=== PATIENT | male | born 1980 ===

== ENCOUNTER 2017-04-03 15:51 | Emergency (ER) | payer OTHER ==
--- NOTE | 2017-04-03 16:21 | UC ---
General HPI - HPI Summary HPI Summary: complaint of tick embedded in his left hip found it this morning and removed it this morning has small red rash around the bite site - History of Current Complaint Chief Complaint: UCSkin Stated Complaint: TICK BITE Time Seen by Provider: 04/03/17 16:14 Hx Obtained From: Patient - Allergy/Home Medications Allergies/Adverse Reactions: Allergies Allergy/AdvReac Type Severity Reaction Status Date / Time No Known Allergies Allergy Verified 04/03/17 16:10 PMH/Surg Hx/FS Hx/Imm Hx Previously Healthy: Yes - Surgical History Surgical History: None Surgery Procedure, Year, and Place: eye surgery - Family History Known Family History: Positive: Hypertension - father Negative: Cardiac Disease, Diabetes - Social History Occupation: Employed Full-time Lives: With Family Alcohol Use: Occasionally Substance Use Type: None Smoking Status (MU): Former Smoker Review of Systems Constitutional: Negative Skin: Rash Eyes: Negative ENT: Negative Respiratory: Negative Cardiovascular: Negative Gastrointestinal: Negative Genitourinary: Negative Motor: Negative Neurovascular: Negative Musculoskeletal: Negative Neurological: Negative Psychological: Negative All Other Systems Reviewed And Are Negative: Yes Physical Exam Triage Information Reviewed: Yes Appearance: No Pain Distress, Well-Nourished, Obese Vital Signs: Initial Vital Signs Temp 98.9 F 04/03/17 16:00 Pulse 103 04/03/17 16:00 Resp 18 04/03/17 16:00 BP 158/86 04/03/17 16:00 Pulse Ox 100 04/03/17 16:00 Vital Signs Reviewed: Yes Eyes: Positive: Conjunctiva Clear ENT: Positive: Pharynx normal, TMs normal Neck: Positive: No Lymphadenopathy Respiratory: Positive: Lungs clear, Normal breath sounds, No respiratory distress, No accessory muscle use Cardiovascular: Positive: RRR, No Murmur, Pulses Normal Abdomen Description: Positive: Nontender, Soft Bowel Sounds: Positive: Present Musculoskeletal: Positive: No Edema Neurological: Positive: Alert Psychological Exam: Normal Skin Exam: Other - right hip - tick bite site with 1x1.5 cm area of erythema surrounding site Course/Dx - Course Course Of Treatment: exam completed. will give prophylactic dosage of doxycylcine followup with PCP - Differential Dx - Multi-Symptom Provider Diagnoses: tick bite. elevated blood pressure Discharge - Discharge Plan Condition: Stable Disposition: HOME Prescriptions: DOXYcycline CAP(*) [DOXYcycline 100MG CAP(*)] 100 mg PO DAILY #2 cap Patient Education Materials: Tick Bite (ED) Referrals: Juan Coulter MD [Primary Care Provider] - Additional Instructions: Please start antibiotic as directed Increase fluids and rest Please review your discharge instructions. If your symptoms do not improve please call your primary care provider or return to urgent care. Your blood pressure is elevated. Please contact your primary care provider within 1 -4 weeks for further evaluation.
== END 2017-04-03 16:44 | disposition home or self-care (01) ==
LOC: UCEAST 15:51
DX: S70.262A Insect bite (nonvenomous), left hip, initial encounter (principal); W57.XXXA Bitten or stung by nonvenomous insect and other nonvenomous arthropods, initial encounter; Y93.9 Activity, unspecified; Y92.9 Unspecified place or not applicable; Y99.9 Unspecified external cause status; Z87.891 Personal history of nicotine dependence
CPT/HCPCS: 99202; G0463

== ENCOUNTER 2017-09-16 07:13 | Emergency (ER) | payer OTHER ==
--- NOTE | 2017-09-16 08:12 | UC ---
Matteo Eisenberg Jason, scribed for Misty Kumar MD on 09/16/17 at 0752 . Throat Pain/Nasal Vance HPI - HPI Summary HPI Summary: This patient is a 37 year old M presenting to [facility] with a chief complaint of post-nasal drip since 2 weeks ago. The patient reports that his condition began 2 weeks ago with post-nasal drip, and progressed to a productive cough that would wake him up at night. After discussing his condition with his mother, he is now visiting [facility] to ensure that he does not have a bacterial infection. Additionally, the patient states that he has previously experienced post-nasal drip from dust and outdoor allergens, and sometimes uses antihistamines such as Benadryl. The patient rates the pain 0/10 in severity. Symptoms aggravated by nothing. Symptoms alleviated by nothing. Patient reports productive cough, and sore throat. Patient denies RAYA, ear soreness, general aching, fever, and current use steroid and saline sprays. - History of Current Complaint Chief Complaint: UCGeneralIllness Stated Complaint: SORE THROAT Time Seen by Provider: 09/16/17 07:33 Hx Obtained From: Patient Onset/Duration: Gradual Onset, Lasting Weeks - 2 weeks, Still Present Pain Intensity: 0 Pain Scale Used: 0-10 Numeric Cough: Productive Associated Signs & Symptoms: Positive: Other - productive cough, and sore throat. Patient denies RAYA, ear soreness, aching, and fever. - Allergies/Home Medications Allergies/Adverse Reactions: Allergies Allergy/AdvReac Type Severity Reaction Status Date / Time No Known Allergies Allergy Verified 09/16/17 07:27 Home Medications: Home Medications NK [No Home Medications Reported] 09/16/17 [History Confirmed 09/16/17] PMH/Surg Hx/FS Hx/Imm Hx Endocrine History: Other - negative DM Other Endocrine History: Negative DM Cardiovascular History: Hypertension - history of borderline hypertension Respiratory History: Pulmonary Embolism, Other - Negative Asthma Other Respiratory History: Negative Asthma Psychological History: Anxiety - past treatment of anxiety, but not recently. - Surgical History Surgical History: Yes Surgery Procedure, Year, and Place: eye surgery - Family History Known Family History: Positive: Hypertension - father Negative: Cardiac Disease, Diabetes - Social History Alcohol Use: Occasionally Substance Use Type: None Smoking Status (MU): Former Smoker Review of Systems Constitutional: Negative - fever ENT: Negative - Ear Ache, Sore Throat, Other - Post-nasal drip Respiratory: Cough - productive Cardiovascular: Other - blood pressures have been near treatment level in the past, but also has history of increased heart rate with anxiety. Musculoskeletal: Negative - myalgia Neurological: Negative - RAYA All Other Systems Reviewed And Are Negative: Yes Physical Exam Triage Information Reviewed: Yes Appearance: Well-Appearing, Obese Vital Signs: Initial Vital Signs Temp 97.9 F 09/16/17 07:21 Pulse 128 09/16/17 07:21 Resp 16 09/16/17 07:21 BP 169/107 09/16/17 07:21 Pulse Ox 99 09/16/17 07:21 Vital Signs Reviewed: Yes Eyes: Positive: Conjunctiva Clear ENT: Positive: Pharynx normal, TM dull - mild bilateral serous fluid Neck: Positive: Supple, Nontender, No Lymphadenopathy Respiratory: Positive: Lungs clear, Normal breath sounds Cardiovascular: Positive: No Murmur, Tachycardia Musculoskeletal Exam: Normal Neurological Exam: Normal Psychological Exam: Normal Skin Exam: Normal Throat Pain/Nasal Course/Dx - Course Course Of Treatment: High blood pressure noted. Follow up advised, although second reading is lower. Symptomatic treatment of viral respiratory illness, possible allergies. - Differential Dx/Diagnosis Provider Diagnoses: pharyngitis, possible environmental allergies. Discharge - Discharge Plan Condition: Stable Disposition: HOME Patient Education Materials: Pharyngitis (ED) Referrals: Juan Coulter MD [Primary Care Provider] - Additional Instructions: For postnasal drainange, I suggest that you try over the counter steroid spray called Flonase, using 2 sprays to both nostrils once daily. In case this is allergies, your might also try a once daily non-sedating antihistamine--either loratidine (Claritin) 10mg once daily or fexofenadine 180mg once daily (Nicole). Your rapid strep is negative. Please ensure that your get a follow up blood pressure reading with Dr. Coulter. The documentation as recorded by the Matteo wilder Jason accurately reflects the service I personally performed and the decisions made by me, Misty Kumar MD.
== END 2017-09-16 08:13 | disposition home or self-care (01) ==
LOC: UCEAST 07:13
DX: J02.9 Acute pharyngitis, unspecified (principal); Z87.891 Personal history of nicotine dependence
CPT/HCPCS: 87651; 99212; G0463

== ENCOUNTER 2018-02-21 07:05 | Emergency (ER) | payer OTHER ==
--- OUTSIDE RECORDS SUMMARY | 2018-02-21 07:11 | XMS REPORT ---
:1980 External Reference #:[id number] Author Organization [facility] Address [address], [address] [place] [address] Phone [phone] Care Team Providers Name Role Phone Juan Coulter MD Care Team Information [employer] Unavailable Juan Coulter MD Primary Care Physician Unavailable Payers Type Date Identification Numbers Payment Provider Subscriber Commercial Policy Number: [id number] Palomo Flores PayID: [id number] [address] [place] [address] Problems Date Description Provider Status Onset: 02/08/2018 Flatulence, eructation and gas pain Oneil Balderas MD Active Family History Date Family Member(s) Problem(s) Comments Mother Diverticulitis Paternal Grandmother Colon Cancer Social History Type Date Description Comments Marital Status Patient is Home Environment Lives With COUSIN Occupation Currently Working Work Status Currently Working Smokeless Tobacco Never Used Smokeless Tobacco ETOH Use Rarely consumes alcohol Smoking Patient denies history of smoking Recreational Drug Use Denies Drug Use Daily Caffeine Consumes on average 3 cups of regular coffee per day Allergies, Adverse Reactions, Alerts Date Description Reaction Status Severity Comments 02/08/2018 NKDA active Medications Description No Information Vital Signs Date Vital Result Comment 02/08/2018 BP Systolic Sitting Right Arm 153 mmHg BP Diastolic Sitting Right Arm 80 mmHg Heart Rate 102 /min Respiratory Rate 18 /min Height 73 inches 6'1" Weight 230.00 lb BMI (Body Mass Index) 30.3 kg/m2 BSA (Body Surface Area) 2.28 m2 [place] body weight in kilograms 83 Results Description No Information Procedures Description No Information Encounters Type Date Location Provider CPT E/M Dx Office Visit 02/08/2018 2:00[place] [id number] R14.0 Plan of Care Future Appointment(s):04/12/2018 4:30 pm - Oneil Balderas MD at [facility]02/08/2018 - Oneil Balderas, MDR14.0 Abdominal distension (gaseous)Comments:Low FODMAP elimination dietSIBO/HBT will be consideredGastric emptying study will be consideredFollow up:F/U in 2 months
--- NOTE | 2018-02-21 07:34 | ED ---
Bite Injury/Animal - HPI Summary HPI Summary: 38 yo WM c/o 2 tick bites noted yesterday on his right chest wall, his aunt took it out but and there is an area of erythema around tick bite, no other sx - History of Current Complaint Chief Complaint: Estefania Stated Complaint: TICK BITE Time Seen by Provider: 02/21/18 07:14 Hx Obtained From: Patient Onset of Injury: Happened days ago Severity Initially: Mild Severity Currently: Mild Pain Intensity: 0 - Allergies/Home Medications Allergies/Adverse Reactions: Allergies Allergy/AdvReac Type Severity Reaction Status Date / Time No Known Allergies Allergy Verified 02/21/18 07:16 PMH/Surg Hx/FS Hx/Imm Hx Previously Healthy: Yes Endocrine/Hematology History: Denies: Hx Diabetes, Hx Thyroid Disease Cardiovascular History: Reports: Hx Hypertension - pre-hypertension, no meds Respiratory History: Denies: Hx Asthma, Hx Chronic Obstructive Pulmonary Disease (COPD) GI History: Denies: Hx Ulcer - Surgical History Surgery Procedure, Year, and Place: eye surgery 1989 Infectious Disease History: No Infectious Disease History: Denies: Hx Clostridium Difficile, Hx Hepatitis, Hx Human Immunodeficiency Virus (HIV), Hx of Known/Suspected MRSA, Hx Shingles, Hx Tuberculosis, Hx Known/ Suspected VRE, Hx Known/Suspected VRSA, History Other Infectious Disease, Traveled Outside the [place] in Last 30 Days - Family History Known Family History: Positive: Hypertension - father Negative: Cardiac Disease, Diabetes - Social History Alcohol Use: Occasionally Substance Use Type: Reports: None Smoking Status (MU): Former Smoker Review of Systems Constitutional: Negative Eyes: Negative ENT: Negative Cardiovascular: Negative Respiratory: Negative Gastrointestinal: Negative Genitourinary: Negative Musculoskeletal: Negative Skin: Other - tick bite Neurological: Negative Psychological: Normal All Other Systems Reviewed And Are Negative: Yes Physical Exam Triage Information Reviewed: Yes Vital Signs On Initial Exam: Initial Vitals Temp Pulse Resp BP Pulse Ox 37.2 C 123 18 137/96 100 02/21/18 07:10 02/21/18 07:10 02/21/18 07:10 02/21/18 07:10 02/21/18 07:10 Vital Signs Reviewed: Yes Appearance: Positive: Well-Appearing Skin: Positive: Warm, Other - tick bite with 2cm area of surrounding erythema, no erythema migrans Head/Face: Positive: Normal Head/Face Inspection Eyes: Positive: Normal ENT: Positive: Normal ENT inspection Neck: Positive: Supple Respiratory/Lung Sounds: Positive: Clear to Auscultation Cardiovascular: Positive: Normal Abdomen Description: Positive: Nontender Bowel Sounds: Positive: Present Musculoskeletal: Positive: Normal Neurological: Positive: Normal Psychiatric: Positive: Normal Diagnostics - Vital Signs Vital Signs Temp Pulse Resp BP Pulse Ox 02/21/18 07:10 37.2 C 123 18 137/96 100 - Laboratory Lab Statement: Any lab studies that have been ordered have been reviewed, and results considered in the medical decision making process. Bite Injury Course/Dx - Course Course Of Treatment: tick bite less than 72 hrs old and pt is anxious and and wants prophylaxis, per pt, prior blood test is neg for lyme. pt was tachycardic at 123 on triage but repeat pulse is 95 - Diagnoses Provider Diagnosis: Tick bite Discharge - Sign-Out/Discharge Documenting (check all that apply): Discharge/Admit/Transfer - Discharge Plan Condition: Stable Disposition: HOME Prescriptions: Doxycycline Hyclate 100 mg PO ONCE 1 Days #2 tablet. Patient Education Materials: Tick Bite (ED) Referrals: Juan Coulter MD [Primary Care Provider] - - Billing Disposition and Condition Condition: STABLE Disposition: HOME
[2018-02-21 07:46] VITALS: BP 140/92
== END 2018-02-21 07:42 | disposition home or self-care (01) ==
LOC: UCEAST 07:05
DX: S20.361A Insect bite (nonvenomous) of right front wall of thorax, initial encounter (principal); W57.XXXA Bitten or stung by nonvenomous insect and other nonvenomous arthropods, initial encounter; Y93.9 Activity, unspecified; Y92.9 Unspecified place or not applicable; I10 Essential (primary) hypertension; Z87.891 Personal history of nicotine dependence
CPT/HCPCS: 99212; G0463